=== PATIENT | female | born 1985 | race Caucasian/White ===

== ENCOUNTER 2017-07-04 16:06 | Emergency (ER) | payer SELFPAY ==
[2011-05-28 13:01] VITALS: BMI 30.5
[2017-07-04 16:44] LABS: BASOPHILS 0.2 % (0-2); EOSINOPHILS 0.8 % (0-7); HEMATOCRIT 41.7 % (36.0-48.0); HEMOGLOBIN 14.5 g/dL (12-16); IMMATURE GRANULOCYTES 0.3 % (0-5); LYMPHOCYTES 18.7 % (15-50); MCH 32.2 pg (26.0-34.0); MCHC 34.8 g/dL (31.0-37.0); MCV 92.5 fL (80.0-100.0); MEAN PLATELET VOLUME 10.5 fL (7.4-10.4); MONOCYTES 6.3 % (2-11); NEUTROPHILS 73.7 % (40-80); PLATELET COUNT 238 10x3/uL (130-400); RBC 4.51 10x6/uL (4.00-5.40); RDW 12.8 % (11.5-14.5); WBC 12.7 10x3/uL (4.8-10.8)
[2017-07-04 17:02] LABS: ALBUMIN 3.7 g/dL (3.4-5.0); ALKALINE PHOSPHATASE 51 U/L (46-116); ALT (SGPT) 17 U/L (10-68); CALC OSMOLALITY 279 mosm/kg (275-300); CALCIUM 8.9 mg/dL (8.5-10.1); CARBON DIOXIDE 22.3 mmol/L (21.0-32.0); CHLORIDE - SERUM 104 mmol/L (98-107); CREATININE - SERUM 0.6 mg/dL (0.6-1.3); GLUCOSE 98 mg/dL (74-106); POTASSIUM - SERUM 4.1 mmol/L (3.5-5.1); PROTEIN - SERUM 6.7 g/dL (6.4-8.2); SODIUM 141 mmol/L (136-145); UREA NITROGEN 10 mg/dL (7-18); eGFR NON AFRICAN AMERICAN > 90 mL/min (90-120)
== END 2017-07-04 19:13 | disposition left against medical advice (07) ==
LOC: D.ER 16:06
PROVIDERS: Emergency Medicine
DX: O26.891 Other specified pregnancy related conditions, first trimester (principal); Z3A.00 Weeks of gestation of pregnancy not specified; Z37.9 Outcome of delivery, unspecified

== ENCOUNTER 2017-07-21 07:45 | Outpatient (CLI) | payer OTHER ==
[~2017-07-21] VITALS: Ht 152.4 cm; Wt 65.9 kg
[2017-07-21 08:26] LABS: APPEARANCE HAZY (CLEAR); SPECIFIC GRAVITY 1.025 (1.005-1.020)
[2017-07-21 08:33] LABS: BACTERIA MODERATE /hpf (NONE SEEN); BILIRUBIN NEGATIVE (NEGATIVE); EPITHELIAL CELLS 0-5 /hpf (0-5); GLUCOSE NEGATIVE (NEGATIVE); KETONE LARGE mg/dL (NEGATIVE); LEUKOCYTE ESTERASE TRACE (NEGATIVE); MUCUS <1+ /lpf (NONE SEEN); NITRITE NEGATIVE (NEGATIVE); PROTEIN TRACE mg/dL (NEGATIVE); RED CELLS - URINE OCC /hpf (0-5); UROBILINOGEN NORMAL (NORMAL); WHITE CELLS - URINE 0-5 /hpf (0-5)
[2017-07-21 08:33] LABS: BASOPHILS 0.1 % (0-2); EOSINOPHILS 0.2 % (0-7); HEMATOCRIT 42.6 % (36.0-48.0); HEMOGLOBIN 15.1 g/dL (12-16); IMMATURE GRANULOCYTES 0.3 % (0-5); LYMPHOCYTES 11.1 % (15-50); MCH 32.3 pg (26.0-34.0); MCHC 35.4 g/dL (31.0-37.0); MEAN PLATELET VOLUME 10.4 fL (7.4-10.4); MONOCYTES 4.3 % (2-11); PLATELET COUNT 276 10x3/uL (130-400); RBC 4.68 10x6/uL (4.00-5.40); RDW 12.1 % (11.5-14.5); WBC 11.9 10x3/uL (4.8-10.8)
[2017-07-21 08:34] LABS: COLOR DK YELLOW (YELLOW)
[2017-07-21 08:47] LABS: HCG SERUM POSITIVE (NEGATIVE)
[2017-07-21 08:55] LABS: ALBUMIN 3.6 g/dL (3.4-5.0); ALKALINE PHOSPHATASE 49 U/L (46-116); ALT (SGPT) 16 U/L (10-68); BILIRUBIN - TOTAL 0.47 mg/dL (0.2-1.3); CALC OSMOLALITY 267 mosm/kg (275-300); CARBON DIOXIDE 18.2 mmol/L (21.0-32.0); CHLORIDE - SERUM 102 mmol/L (98-107); CREATININE - SERUM 0.7 mg/dL (0.6-1.3); GLUCOSE 121 mg/dL (74-106); POTASSIUM - SERUM 3.7 mmol/L (3.5-5.1); PROTEIN - SERUM 7.3 g/dL (6.4-8.2); SODIUM 134 mmol/L (136-145); UREA NITROGEN 9 mg/dL (7-18); eGFR NON AFRICAN AMERICAN > 90 mL/min (90-120)
[2017-07-21 09:29] LABS: HCG - QUANTITATIVE (MATERNAL) 128896 mIU/mL
--- NOTE | 2017-07-21 13:39 | NUR ---
R'HERNANDO PT FROM ER VIA WC PT STATES IS IN SEVERE PAIN AND THINKS SHE IS CONSTIPATED. STATES SHE CAN'T REMEMBER WHEN THE LAST TIME SHE HAD A BOWEL MOVEMENT. IS DRY HEEVING AND STATES SHE JUST WANTS TO GO TO BATHROOM.
--- NOTE | 2017-07-21 13:44 | NUR ---
FLEETS ENEMA GIVEN BY ROSS WHITNEY RN INSTRUCTED TO HOLD FOR AT LEAST 10MINS. PT STATES SHE CAN'T THEN RUNS INTO BATHROOM.
--- NOTE | 2017-07-21 14:00 | NUR ---
CALL TO ER TO SPEAK WITH DR LUTZ ABOUT THE FLEETS ORDER TO CLEAR AND IF PT CAN HAVE SOME ZOFRAN. ORDER RECEIVED FOR ZOFRAN.
[2017-07-21 14:03] VITALS: Ht 152.4 cm; Wt 65.9 kg
--- NOTE | 2017-07-21 14:37 | NUR ---
ZOFRAN 4MG ODT GIVEN STATES IS IN SEVERE PAIN LIKE WHEN SHE HAS HAD A KIDNEY STONE. STATES HER HANDS ARE DRAWING UP AND LEGS TIGGLING.
--- NOTE | 2017-07-21 14:40 | NUR ---
NOTIFIED DR LANZA ABOUT PT BEING IN OUTPATIENT AND WHAT THE ORDER WAS FOR THE FLEETS ENEMA IF IT WAS TIL CLEAR AND IF COULD GIVE SOAP SUDS ENEMA. DR LANZA STATED NO SHE WANTED PT TO HAVE ONLY ONE FLEETS ENEMA ONLY AND IF SHE NEEDED ANYTHING FOR THE NAUSEA. THIS NURSE EXPLAINED THAT ER DR LUTZ HAD GIVEN ME AN ORDER FOR ZOFRAN 4MG ODT. DR LANZA STATED TO TELL PT TO GO HOME AND TAKE MILK OF MAGNESIA.
--- NOTE | 2017-07-21 14:40 | NUR ---
NOTIFED DR LANZA ABOUT PT HAVING THE ENEMA WITH LITTLE RESULTS AND IS IN SEVERE PAIN LIKE WHEN SHE HAS HAD A KIDNEY STONE STATED BY PT. ORDER GIVEN FROM DR LANZA. THEN TO SEND HOME AFTERWARDS.
--- NOTE | 2017-07-21 14:45 | NUR ---
EXPLAINED TO PT WHAT DR LANZA HAD ORDERED BUT WOULD NEED A REGISTERED NURSE TO TAKE HER HOME BEFORE GIVING THE DEMERAL/PHENERGAN D/T SHE WANT BE ABLE TO DRIVE AFTER RECEIVING. STATES THAT THE FOB STATED SHE WAS FAKING HER PAIN AND BEING CONSTIPATED AND TO ABORT THE BABY. PT REASSURES THAT SHE WILL HAVE HER MOM COME GET HER.
--- NOTE | 2017-07-21 15:31 | NUR ---
PIV STARTED IN LT AC BY EDUARDO ALVARADO RN. NS 1,000ML STARTED AND ANCEF 2GRAM IV STARTED. PT DRY HEAVING AND STATES IS IN PAIN.
--- NOTE | 2017-07-21 16:24 | NUR ---
DEMERAL 50MG IVP AND PHENERGAN 25MG IVP GIVEN BY HUSEYIN RODRIGUEZ RN.
--- NOTE | 2017-07-21 16:40 | NUR ---
RM CHECK PT STATES SHE ISN'T IN MUCH PAIN PREVIOUS. ASKED IF SHE NEEDED TO GO TO BATHROOM PT DENIED NEED. STATES HER MOM IS SUPPOSE TO BE ON HER WAY TO PICK HER UP. PT IS ROLLED UP IN POSITION.
--- NOTE | 2017-07-21 17:30 | NUR ---
RM CHECK ASKED IF PT WAS FEELING BETTER PT STATES SOME BUT STILL HURTS AND HASN'T WENT ANYMORE TO BATHROOM. ASKED IF HER MOM WAS STILL ON HER WAY D/T SHE HASN'T REPORTED TO THE HOSPITAL YET. PT STATED SHE WOULD RECONTACT HER MOTHER.
--- NOTE | 2017-07-21 18:05 | NUR ---
THIS NURSE ENTERS ROOM AND ASKS PATIENT WHEN TRANSPORTATION WILL BE ABLE TO BE HERE, ADVISED PATIENT THAT DISCHARGE IS IMMINENT
--- NOTE | 2017-07-21 18:45 | NUR ---
PATIENT STATES THAT HER MOM IS UNABLE TO GET HERE TO PROVIDE TRANSPORTATION DUE TO CAR TROUBLE. THIS NURSE ASKS PATIENT IF THERE IS ANYONE ELSE THAT CAN COME PICK PATIENT UP. PATIENT STATES "NO, I DON'T HAVE ANYONE BUT MY PARENTS AND THEIR CAR IS HAVING PROBLEMS." THIS NURSE ASKS PATIENT ABOUT MAN WHO WAS HERE EARLIER VISITING PATIENT, PATIENT STATES "NO, HE WON'T COME. HE WOULDN'T EVEN STAY HERE WITH ME. HE WENT BACK TO [place] AND WON'T COME GET ME." PATIENT STATES "I HAVE MY CAR, CAN'T I JUST DRIVE HOME?" ADVISED THAT DUE TO THE DEMEROL AND PHENERGAN INJECTION SHE RECEIVED TODAY, SHE SHOULD NOT DRIVE FOR AT LEAST 12 HOURS.
--- NOTE | 2017-07-21 18:55 | NUR ---
PER FUEL OPERATOR LINDSAY, A [employer] MAY BE CALLED AND WILL BE COVERED BY THIS FACILITY DUE TO PATIENT NOT HAVING TRANSPORTATION HOME. [facility] CALLED AND REQUESTED CAB TO OUTPATIENT DEPARTMENT
--- NOTE | 2017-07-21 19:35 | NUR ---
THIS NURSE WHEELS PATIENT TO [facility] TO BE DISCHARGED, TO MEET [employer] PLANNED. PATIENT STATING "WHY CAN'T I JUST DRIVE HOME, I FEEL FINE. I DON'T WANT TO LEAVE MY CAR HERE." [employer] [facility] NOT HERE PLANNED, THIS NURSE WALKS TO CLOSEST PHONE TO CALL [employer]. [employer] COMPANY DISPATCHER STATES THAT A CAB IS ON THE WAY. WHEN THIS NURSE RETURNS TO WHERE PATIENT WAS WAITING IN CHAIR IN [facility], PATIENT HAS LEFT
== END 2017-07-21 19:35 | disposition home or self-care (01) ==
LOC: D.ER 07:45 → D.OPS 07:45 → EDSTATUS 14:00 → D.OPS 19:35
PROVIDERS: Family Medicine
DX: O26.891 Other specified pregnancy related conditions, first trimester (principal); Z3A.10 10 weeks gestation of pregnancy; N39.0 Urinary tract infection, site not specified; K59.00 Constipation, unspecified; F17.200 Nicotine dependence, unspecified, uncomplicated

== ENCOUNTER 2017-08-10 14:37 | Emergency (ER) | payer OTHER ==
[2017-07-21 14:03] VITALS: BMI 28.3
[2017-08-10 15:57] LABS: BASOPHILS 0.1 % (0-2); EOSINOPHILS 0.1 % (0-7); HEMATOCRIT 39.1 % (36.0-48.0); IMMATURE GRANULOCYTES 0.4 % (0-5); LYMPHOCYTES 11.5 % (15-50); MCH 32.1 pg (26.0-34.0); MCHC 35.8 g/dL (31.0-37.0); MCV 89.7 fL (80.0-100.0); MEAN PLATELET VOLUME 9.8 fL (7.4-10.4); MONOCYTES 5.7 % (2-11); NEUTROPHILS 82.2 % (40-80); PLATELET COUNT 253 10x3/uL (130-400); RBC 4.36 10x6/uL (4.00-5.40); RDW 12.4 % (11.5-14.5); WBC 14.2 10x3/uL (4.8-10.8)
[2017-08-10 16:27] LABS: ALBUMIN 3.2 g/dL (3.4-5.0); ALKALINE PHOSPHATASE 34 U/L (46-116); ALT (SGPT) 21 U/L (10-68); CALC OSMOLALITY 271 mosm/kg (275-300); CALCIUM 8.8 mg/dL (8.5-10.1); CARBON DIOXIDE 20.4 mmol/L (21.0-32.0); CHLORIDE - SERUM 102 mmol/L (98-107); CREATININE - SERUM 0.6 mg/dL (0.6-1.3); GLUCOSE 97 mg/dL (74-106); PROTEIN - SERUM 6.7 g/dL (6.4-8.2); SODIUM 137 mmol/L (136-145); UREA NITROGEN 6 mg/dL (7-18); eGFR NON AFRICAN AMERICAN > 90 mL/min (90-120)
[2017-08-10 16:50] LABS: HCG - QUANTITATIVE (MATERNAL) 88877 mIU/mL
[2017-08-11] MEDS ORDERED: ZOFRAN4 MG PO (10:22)
== END 2017-08-10 18:19 | disposition home or self-care (01) ==
LOC: D.ER 14:37
PROVIDERS: Physician Assistant
DX: O21.9 Vomiting of pregnancy, unspecified (principal); Z3A.11 11 weeks gestation of pregnancy; R10.84 Generalized abdominal pain; E87.6 Hypokalemia; K80.20 Calculus of gallbladder without cholecystitis without obstruction

== ENCOUNTER 2017-08-14 05:06 | Day surgery (SDC) | payer OTHER ==
[2017-08-11 11:22] LABS: HEMATOCRIT 41.4 % (36.0-48.0); HEMOGLOBIN 14.8 g/dL (12-16); MCH 32.1 pg (26.0-34.0); MCHC 35.7 g/dL (31.0-37.0); MCV 89.8 fL (80.0-100.0); MEAN PLATELET VOLUME 10.3 fL (7.4-10.4); RBC 4.61 10x6/uL (4.00-5.40); RDW 12.5 % (11.5-14.5); WBC 16.1 10x3/uL (4.8-10.8)
[~2017-08-14 05:06] MED LIST: ZOFRAN4 MG PO
[2017-08-14 13:02] VITALS: BP 120/78; BMI 26.4
--- NOTE | 2017-08-14 16:04 | NUR ---
PATIENT IS 11 WEEKS , HEART TONES DONE PRIOR TO GENERAL ANESTHESIA, LEAD APRONS PLACED UNDER BACK AND ON TOP OF ABDOMEN OF PATIENT FOR C-ARM PROTECTION, RICHARD.
--- NOTE | 2017-08-14 16:18 | NUR ---
HEART TONES DONE IN RR AFTER PROCEDURE, RICHARD.
[2017-08-14] MEDS ORDERED: HYDROCODONE-APA1 TAB PO (16:19)
--- NOTE | 2017-08-14 16:51 | NUR ---
[facility] CALLED TO REQUEST THEM TO RECHECK HEART TONES AFTER SURGERY. L&D ADVISDED THEY WERE UNABLE TO SEND A NURSE UP TO GET HEART TONES IN RECOVERY. [facility] WAS NOTIFIED ABOUT THE PATIENTS DISCHARGE FROM PACU AND ADVISED OF HER ROOM NUMBER IN THE OUTPATIENT DEPT.
--- NOTE | 2017-08-14 17:25 | NUR ---
[facility] NURSE PARIS RN ON FLOOR TO LISTEN TO HEART TONES. [facility] REPORTS THAT HEART TONES AT THIS TIME ARE 146 PER MINUTE
--- NOTE | 2017-08-14 17:56 | NUR ---
PATIENT CONTINUES TO COMPLAIN OF NAUSEA, HAS TOLERATED ABOUT 2-[address] O[address]QU[address] HEARN ORDERS ZOFRAN IV
--- NOTE | 2017-08-14 18:10 | NUR ---
PATIENT STATES NAUSEA IS MUCH BETTER, HAS CONSUMED TOTAL OF 8 OUNCES CLEAR LIQUID WITHOUT VOMITING. RIGHT AC PIV DC'D WITH TIP INTACT. PATIENT DRESSING IN PERSONAL CLOTHING
--- NOTE | 2017-08-14 18:20 | NUR ---
DISCHARGE INSTRUCTIONS REVIEWED WITH PATIENT AND BOYFRIEND. PATIENT DISCHARGED HOME VIA WHEELCHAIR TO PRIVATE VEHICLE WITH MOTHER AND BOYFRIEND
--- NOTE | 2017-08-15 18:32 | OP ---
PATIENT NAME: ТАТЬЯНА MARTINEZ MEDICAL RECORD: [id number] :85 LOCATION:D.OPS ADMISSION DATE: SURGEON: AKIN HEARN MD DATE OF OPERATION: 08/14/2017 Orthopedic Surgery Operative Note PREOPERATIVE DIAGNOSIS: Displaced left fifth toe phalanx fracture. POSTOPERATIVE DIAGNOSIS: Displaced left fifth toe phalanx fracture. PROCEDURE: Closed reduction percutaneous pinning of left fifth toe phalanx fracture. SURGEON: Akin Hearn MD. ANESTHESIA: General. INTRAOPERATIVE COMPLICATIONS: None. SUMMARY OF PATHOLOGIC FINDINGS: The patient had a very oblique fracture that was very difficult to pin closed, although in the end, anatomic reduction was restored. OPERATIVE SUMMARY IN DETAIL: After obtaining the appropriate preoperative orthopedic surgery consent, as well as anesthetic consultation, evaluation and clearance, the patient was brought to the operating room and placed on the operating table in supine position. After adequate general laryngeal mask, airway anesthesia was administered, tourniquet was placed about the proximal aspect of the left lower extremity. It was not used during this case. Left lower extremity was then prepped and draped in routine sterile fashion. Under direct fluoroscopic guidance, a reduction maneuver was performed, 2 K-wires were utilized to pin the very oblique proximal phalanx fracture of the left 5th metatarsal. Final radiographs were taken and submitted for radiologist review. Jergen's balls were placed on the pins. Sterile dressings were applied. The patient was awakened, taken to the recovery room in stable condition. All final needle and sponge counts were correct. TRANSINT:[id number] Voice Confirmation ID: [id number] DOCUMENT ID: [id number] NADIYA TODD, AKIN LEHMAN at 1832 CC: [id number] DICTATION DATE: 08/14/17 1621 MEDICAL ECONOMICS CONSULTANT: 08/14/17 193 [facility] 08/14/17 [facility] [address] [id number]
== END 2017-08-14 18:20 | disposition home or self-care (01) ==
LOC: D.OPS 05:06 → D.PAN 16:35 → D.OPS 16:45
PROVIDERS: Anesthesiology
DX: S92.512A Displaced fracture of proximal phalanx of left lesser toe(s), initial encounter for closed fracture (principal)

== ENCOUNTER → 2018-01-09 08:27 | Outpatient (CLI) | payer OTHER ==
[~2018-01-09 08:27] MED LIST changes: +FLINTSTONE1 TAB.CHEW PO; +HYDROCODONE-APA1 TAB PO; +TYLENOL W/CODEI1 TAB PO
[2018-01-09 09:15] LABS: APPEARANCE CLEAR (CLEAR); BILIRUBIN NEGATIVE (NEGATIVE); COLOR YELLOW (YELLOW); GLUCOSE NEGATIVE (NEGATIVE); KETONE NEGATIVE (NEGATIVE); NITRITE NEGATIVE (NEGATIVE); PROTEIN NEGATIVE (NEGATIVE); UROBILINOGEN NORMAL (NORMAL)
== END | disposition home or self-care (01) ==
LOC: D.LDO 08:27
PROVIDERS: Obstetrics & Gynecology
DX: O26.893 Other specified pregnancy related conditions, third trimester (principal); Z3A.33 33 weeks gestation of pregnancy; R10.9 Unspecified abdominal pain; M54.9 Dorsalgia, unspecified; R10.2 Pelvic and perineal pain

== ENCOUNTER 2018-02-03 19:49 | Outpatient (CLI) | payer OTHER ==
[~2018-02-03 19:49] MED LIST changes: -FLINTSTONE1 TAB.CHEW PO; -TYLENOL W/CODEI1 TAB PO
== END 2018-02-03 21:07 | disposition home or self-care (01) ==
LOC: D.LDO 19:49
DX: O26.893 Other specified pregnancy related conditions, third trimester (principal); Z3A.37 37 weeks gestation of pregnancy

== ENCOUNTER 2018-02-11 21:04 | Inpatient (IN) | payer OTHER ==
[~2018-02-11] VITALS: Ht 152.4 cm; Wt 71.2 kg
--- NOTE | ~2018-02-11 | OP ---
PATIENT NAME: ТАТЬЯНА MARTINEZ MEDICAL RECORD: [id number] :85 LOCATION:[id number] ADMISSION DATE:02/11/18 SURGEON: ANJUM BLANCO MD DATE OF OPERATION: 02/12/2018 PREDELIVERY DIAGNOSIS: at term. POSTDELIVERY DIAGNOSIS: Mother delivered at term. PROCEDURE: Induction of labor with vaginal delivery. ATTENDING: Dr. Blanco. ANESTHETIC: Continuous lumbar Epidural. FINDINGS: Viable male infant SAMEER presentation. Weight 7 pounds 10 ounces with Apgars 9 and 9. First-degree laceration with 2-0 chromic repair. Placenta spontaneous and intact. ESTIMATED BLOOD LOSS: 300 cc. DISPOSITION: Mother and infant recovered in the recovery room. TRANSINT:[id number] Voice Confirmation ID: [id number] DOCUMENT ID: [id number] ANJUM BLANCO MD at 1308 CC: [id number] DICTATION DATE: 02/12/182123 HIGH RAW SUGAR BOILER: 02/13/18 0220 DIS IN 02/14/[id number] [place] [address]
--- NOTE | ~2018-02-11 | DS ---
PATIENT:ТАТЬЯНА MARTINEZ :85 MEDICAL RECORD: [id number] DISCHARGE SUMMARY ADMISSION DATE: 02/11/18 DISCHARGE DATE: 02/14/18 DATE OF ADMISSION: 02/11/2018 DATE OF DISCHARGE: 02/14/2018 ADMISSION DIAGNOSIS: at term. DISCHARGE DIAGNOSIS: Mother delivered at term. PROCEDURE PERFORMED: Vaginal delivery. ATTENDING: Anjum Gilbert MD HISTORY OF PRESENT ILLNESS AND REASON FOR HOSPITALIZATION: See the H&P in the chart. SUMMARY OF HOSPITALIZATION: The patient was admitted, underwent induction of labor, and delivered without incident. The patient is doing well at the time of discharge with minimal lochia and adequate pain control. Standard precautions have been reviewed with the patient. She will follow up in 6 weeks. She has elected to use [facility] for her control and I will give her a prescription for Tylenol No. 3 for the cramping. TRANSINT:[id number] Voice Confirmation ID: [id number] DOCUMENT ID: [id number] ANJUM GILBERT MD at 1536 CC: [id number] DICTATION DATE: 02/14/18 1212 ELECTROMEDICAL EQUIPMENT TECHNICIAN: 02/14/18 1318 DIS IN 02/14/18 [id number] [place] [address]
[2018-02-11] MEDS ORDERED: FLINTSTONE1 TAB.CHEW PO (22:40)
[2018-02-11 22:41] VITALS: BP 141/75; Ht 152.4 cm; Wt 71.2 kg
[2018-02-11 22:44] LABS: HEMOGLOBIN 12.3 g/dL (12-16); MCH 31.5 pg (26.0-34.0); MCHC 34.2 g/dL (31.0-37.0); MCV 92.1 fL (80.0-100.0); MEAN PLATELET VOLUME 11.2 fL (7.4-10.4); RBC 3.91 10x6/uL (4.00-5.40); RDW 13.1 % (11.5-14.5); WBC 11.8 10x3/uL (4.8-10.8)
[2018-02-11 22:49] LABS: APPEARANCE CLEAR (CLEAR); BILIRUBIN NEGATIVE (NEGATIVE); COLOR YELLOW (YELLOW); GLUCOSE 250 mg/dL (NEGATIVE); KETONE NEGATIVE (NEGATIVE); NITRITE NEGATIVE (NEGATIVE); PROTEIN NEGATIVE (NEGATIVE); SPECIFIC GRAVITY 1.025 (1.005-1.020); UROBILINOGEN NORMAL (NORMAL)
[2018-02-11 22:55] LABS: HIV 1 & 2- RAPID SCREEN NEGATIVE (NEGATIVE)
[2018-02-11 23:15] LABS: UDS - AMPHET NEGATIVE QUAL (NEGATIVE); UDS - BARB NEGATIVE QUAL (NEGATIVE); UDS - BENZO NEGATIVE QUAL (NEGATIVE); UDS - COCAINE NEGATIVE QUAL (NEGATIVE); UDS - OPIATE NEGATIVE QUAL (NEGATIVE); UDS - PCP NEGATIVE QUAL (NEGATIVE); UDS - THC NEGATIVE QUAL (NEGATIVE)
[2018-02-12 23:13] VITALS: BP 119/63
[2018-02-13 06:15] LABS: RAPID PLASMA REAGIN Non Reactive (Non Reactive)
[2018-02-13 07:17] LABS: HEMATOCRIT 31.6 % (36.0-48.0); HEMOGLOBIN 10.6 g/dL (12-16); MCHC 33.5 g/dL (31.0-37.0); MCV 92.4 fL (80.0-100.0); RBC 3.42 10x6/uL (4.00-5.40)
[2018-02-13 07:20] LABS: WBC 17.6 10x3/uL (4.8-10.8)
[2018-02-13 15:38] VITALS: BP 111/74
[2018-02-13 19:30] VITALS: BP 127/64
[2018-02-14 07:38] VITALS: BP 126/84
[2018-02-14] MEDS ORDERED: TYLENOL W/CODEI1 TAB PO (11:07)
== END 2018-02-14 12:00 | disposition home or self-care (01) | DRG 775 ==
LOC: D.LD 21:04
PROVIDERS: Obstetrics & Gynecology
PROC: 10E0XZZ Delivery of Products of Conception, External Approach (ICD-10-PCS; principal; 2018-02-12)
PROC: 0HQ9XZZ Repair Perineum Skin, External Approach (ICD-10-PCS; 2018-02-12)
DX: O99.824 Streptococcus B carrier state complicating childbirth (principal); Z3A.39 39 weeks gestation of pregnancy; Z37.0 Single live birth; O70.0 First degree perineal laceration during delivery